=== PATIENT | female | born 1955 | race Caucasian/White ===

== ENCOUNTER → 2016-09-04 | Outpatient (CLI) | payer BC ==
[~2016-09-04] MED LIST: ASPIRIN E.C. 8181 MG PO; CRANBERRY FRUI405 MG PO; MULTI VITAMINS1 TAB PO; OYSCO 500500 M1 PO; VITAMIND3 5000 PO; ZOCOR 20MG20 MG PO
== END ==
LOC: MC.RAD 07:00
DX: Z12.31 Encounter for screening mammogram for malignant neoplasm of breast (principal)

== ENCOUNTER 2016-11-05 12:48 | Outpatient (CLI) | payer BC ==
[~2016-11-05] VITALS: Ht 167.6 cm; Wt 66.4 kg
[2016-11-05] MEDS ORDERED: VITAMIND3 5000 PO (12:57)
[2016-11-05] MEDS ORDERED: ZOCOR 20MG20 MG PO (12:57)
[2016-11-05] MEDS ORDERED: OYSCO 500500 M1 PO (12:58)
[2016-11-05] MEDS ORDERED: ASPIRIN E.C. 8181 MG PO (12:59)
[2016-11-05] MEDS ORDERED: MULTI VITAMINS1 TAB PO (13:00)
[2016-11-05] MEDS ORDERED: CRANBERRY FRUI405 MG PO (13:00)
[2016-11-05 13:15] VITALS: BP 106/63; PULSE 61; TEMP 97.6
== END 2016-11-05 14:55 | disposition home or self-care (01) ==
LOC: EUO 12:48
DX: M81.0 Age-related osteoporosis without current pathological fracture (principal); M85.88 Other specified disorders of bone density and structure, other site
CPT/HCPCS: J3489

== ENCOUNTER → 2017-08-08 | Outpatient (CLI) | payer BC | LOC: MC.RAD 07:40 | DX: Z12.31 Encounter for screening mammogram for malignant neoplasm of breast (principal) ==

== ENCOUNTER 2017-11-15 15:35 | Outpatient (CLI) | payer BC ==
[~2017-11-15] VITALS: Ht 167.6 cm; Wt 65.6 kg
[2017-11-15] MEDS ORDERED: CALCIUM ANTACI500 MG PO (16:33)
[2017-11-15 16:36] VITALS: BP 117/75; PULSE 73; TEMP 98.6
== END 2017-11-15 17:10 | disposition home or self-care (01) ==
LOC: EUO 15:35
DX: M81.0 Age-related osteoporosis without current pathological fracture (principal)
CPT/HCPCS: J3489

== ENCOUNTER → 2018-04-21 | Outpatient (CLI) | payer BC ==
[~2018-04-21] MED LIST changes: +CALCIUM ANTACI500 MG PO
== END ==
LOC: COL.RAD 10:55
DX: K22.4 Dyskinesia of esophagus (principal)

== ENCOUNTER → 2018-09-15 | Outpatient (CLI) | payer BC | LOC: MC.RAD 14:28 | DX: Z12.31 Encounter for screening mammogram for malignant neoplasm of breast (principal) ==

== ENCOUNTER 2018-12-03 14:55 | Outpatient (CLI) | payer BC ==
[~2018-12-03] VITALS: Ht 167.6 cm; Wt 69.1 kg
[2018-12-03] MEDS ORDERED: PREMARIN VAG42.5 GM VG (15:45)
[2018-12-03 16:07] VITALS: BP 117/67; PULSE 70; TEMP 97.8
== END 2018-12-03 16:08 | disposition home or self-care (01) ==
LOC: EUO 14:55
DX: M81.0 Age-related osteoporosis without current pathological fracture (principal)
CPT/HCPCS: J3489

== ENCOUNTER 2019-12-25 06:50 | Outpatient (CLI) | payer BC ==
[~2019-12-25] VITALS: Ht 167.6 cm; Wt 66.3 kg
[~2019-12-25 06:50] MED LIST changes: +PREMARIN VAG42.5 GM VG
[2019-12-25 07:49] VITALS: BP 115/73; PULSE 58; TEMP 98.1
== END 2019-12-25 07:50 | disposition home or self-care (01) ==
LOC: EUO 06:50
DX: M81.0 Age-related osteoporosis without current pathological fracture (principal)
CPT/HCPCS: J3489

== ENCOUNTER → 2020-08-23 | Outpatient (CLI) | payer BC | LOC: MC.RAD 08:45 | DX: Z12.31 Encounter for screening mammogram for malignant neoplasm of breast (principal) ==

== ENCOUNTER → 2021-09-05 | Outpatient (CLI) | payer MEDICARE, OTHER | LOC: MC.RAD 07:55 | DX: Z12.31 Encounter for screening mammogram for malignant neoplasm of breast (principal); N64.89 Other specified disorders of breast ==

== ENCOUNTER → 2021-09-08 | Outpatient (CLI) | payer MEDICARE, OTHER | LOC: MC.RAD 08:44 | DX: N64.53 Retraction of nipple (principal); N83.201 Unspecified ovarian cyst, right side ==

== ENCOUNTER → 2022-07-09 | Outpatient (CLI) | payer MEDICARE, OTHER ==
[~2022-07-09] MED LIST changes: +CALCIUM-500 5001 CTB PO; -CRANBERRY FRUI405 MG PO; +CRANBERRY FRUI425 MG PO; +PEPCID 20MG TAB20 MG PO
== END ==
LOC: COL.RAD 07:17
DX: K21.9 Gastro-esophageal reflux disease without esophagitis (principal); K22.89 Other specified disease of esophagus; R68.81 Early satiety
CPT/HCPCS: A9541

== ENCOUNTER 2023-10-01 10:00 | Outpatient (RCR) | payer MEDICARE, OTHER ==
[2023-09-26 10:08] VITALS: BP 108/68; PULSE 58; TEMP 97.9
[~2023-10-01 10:00] MED LIST changes: +DESYREL 50MG50 MG PO
[2023-10-01 10:25] VITALS: BP 105/68; PULSE 63; TEMP 97.8
--- NOTE | 2023-10-01 10:50 | NUR ---
Pt discharged via ambulatory after infusion complete.
== END 2023-10-01 10:50 ==
LOC: EUO 10:00
DX: E61.1 Iron deficiency (principal)
CPT/HCPCS: Q0138

== ENCOUNTER 2024-03-04 21:53 | Emergency (ER) | payer MEDICARE, OTHER ==
[~2024-03-04] VITALS: Ht 165.1 cm; Wt 61.8 kg
[2024-03-04 22:43] LABS: BASO % 0.4 % (0.0-2.0); EOS # 0.1 K/mm3 (0.0-0.7); EOS % 1.2 % (0.0-4.0); GRAN # 4.8 K/mm3 (1.4-6.5); GRAN % 63.9 % (42.2-75.2); HEMATOCRIT 42.6 % (37.0-47.0); HEMOGLOBIN 14.7 g/dl (12.5-16.0); LYMPH # 1.9 K/mm3 (1.2-3.4); LYMPH % 25.8 % (20.0-51.0); MEAN CELL VOLUME 94 fl (80.0-100.0); MEAN CORPUSCULAR HEMOGLOBIN 32 pg (27-31); MEAN CORPUSCULAR HGB CONC 35 g/dl (33.0-37.0); MONO # 0.6 K/mm3 (0.1-0.6); MONO % 8.3 % (1.7-9.3); PLATELET COUNT 255 K/mm3 (130-400); RED BLOOD COUNT 4.55 M/mm3 (4.10-5.30); REDCELL DISTRIBUTION WIDTH-CV 12.4 % (11.5-14.5)
[2024-03-04 22:50] LABS: PH 5.5 (5.0-8.5); URINE APPEARANCE CLOUDY (CLEAR/HAZY); URINE BLOOD 3+ (NEGATIVE); URINE COLOR YELLOW (YELLOW); URINE GLUCOSE NEGATIVE (NEGATIVE); URINE KETONE TRACE (NEGATIVE); URINE NITRATE NEGATIVE (NEGATIVE); URINE PROTEIN(semi-quant) 1+ (NEGATIVE)
[2024-03-04 22:52] LABS: COLLECTION METHOD CLEAN CATCH
[2024-03-04 22:55] LABS: ALBUMIN 4.2 g/dL (3.4-4.8); BILIRUBIN,TOTAL 1.5 mg/dL (0.2-1.2); C-REACTIVE PROTEIN 0.02 mg/dL (0.00-0.50); CALCIUM 9.9 mg/dL (8.4-10.2); CREATININE, serum 0.78 mg/dL (0.57-1.11); POTASSIUM 3.7 mEq/L (3.5-4.5); TOTAL PROTEIN 7.3 g/dl (6.2-8.1)
[2024-03-04] MEDS ORDERED: cefTRIAXone 1 G in Water For Injection,Sterile 10 ML IV ONE (23:00)
[2024-03-04] MEDS ORDERED: NS 1,000 ML IV ONE (23:00)
[2024-03-04] MEDS ORDERED: Iohexol 300 - 100 ML VIAL IV ONE (23:19)
[2024-03-04] MEDS ORDERED: NS 100 ML IV ONE (23:19)
[2024-03-05] MEDS ORDERED: CEFTIN 250250 MG/TAB PO (00:16)
[2024-03-05] MEDS ORDERED: [UNRECOGNIZED DRUG - OTHER] PO ONE (00:30)
[2024-03-05 00:58] VITALS: BP 136/84; PULSE 64; TEMP 97.7
== END 2024-03-05 00:58 | disposition home or self-care (01) ==
LOC: COL.ER 21:53
PROVIDERS: Nurse Practitioner
DX: N39.0 Urinary tract infection, site not specified (principal); Z90.710 Acquired absence of both cervix and uterus; Z88.2 Allergy status to sulfonamides
CPT/HCPCS: J0696; J7030; Q9967